=== PATIENT | female | born 1945 | race Caucasian/White ===

== ENCOUNTER → 2020-03-04 13:20 | Outpatient (CLI) | payer MEDICARE, SELFPAY ==
--- NOTE | ~2020-03-04 | MR_ITS ---
EXAMINATION: MR lumbar spine wo/w con DATE: 03/04/2020 14:24 INDICATION: Low back pain. TECHNIQUE: Magnetic resonance imaging (MRI) of the lumbar spine was performed without and with 13 mL Multihance intravenous contrast. Sequences included sagittal T2-weighted FSE, sagittal T2-weighted FS FSE, and sagittal and axial T1-weighted FSE. Postcontrast sequences included axial T2-weighted FSE, sagittal T1-weighted FSE, and axial and sagittal T1-weighted FS FSE. COMPARISON: 11/04/2017 FINDINGS: Interval L4 laminectomy with mild enhancement of the soft tissues at the operative bed.. 4 mm retroli sthesis L3 on L4. Vertebral body heights are normal. Schmorl's nodes at both sides of the L4-L5 disc space. Severe disc height loss with associated fibrofatty degenerative endplate changes at L3-L4. Mil d disc height loss at T10-T11 through L1-L2 as well as at L5-S1. Interval progression of mild to mode rate disc height loss at L2-L3 and L4-L5. T1 hyperintense hemangiomas at L1 and L4. Marrow signal is otherwise unremarkable. The conus medullaris terminates at L1. There is normal signal in the caudal s favian cord. No abnormally enhancing lesions identified. Paravertebral soft tissues are unremarkable. The following disc levels are specifically discussed: T12-L1: Disc is bulging with superimposed annular fissure with left paracentral disc extrusion with d isc material extending up to 3 mm caudal to the level of the superior endplate of L1. There is modera te bilateral facet joint osteoarthritis. There is mild left neural foraminal stenosis. There is mild central canal stenosis. L1-L2: Disc is bulging. There is mild to moderate bilateral facet joint osteoarthritis. There is mild bilateral neural foraminal stenosis. There is mild central canal stenosis. L2-L3: Disc is bulging with superimposed annular fissure and left foraminal zone and extraforaminal d isc protrusion. There is hypertrophy of the ligamentum flavum. There is severe bilateral facet joint osteoarthritis. There is mild right and mild to moderate left neural foraminal stenosis. There is mi ld central canal stenosis. L3-L4: Disc is bulging with annular fissure. There is moderate right and severe left facet joint oste oarthritis. There is moderate bilateral neural foraminal stenosis. There is decreased now mild centra l canal stenosis resulting from interval posterior decompression. L4-L5: Annular fissure with increase in size of a broad-based disc extrusion extending from foraminal zone to foraminal zone with disc material extending a few millimeters cephalad and caudal to the lev el of the endplates. There is severe bilateral facet joint osteoarthritis. There is increased moderat e left and moderate to severe right neural foraminal stenosis. There is decreased now mild central ca nal stenosis resulting from interval posterior decompression. L5-S1: Disc is bulging with superimposed annular fissure and left foraminal zone disc extrusion. Ther e is severe bilateral facet joint osteoarthritis. There is mild right and moderate left neural forami nal stenosis. There is mild central canal stenosis. IMPRESSION: 1. Interval progression of severe lumbar spondylosis but with decreased now mild central canal stenos is at L3-L4 and L4-L5 resulting from posterior decompression with L4 laminectomy. Reviewed, dictated and finalized at location A. IMPRESSION: 1. Interval progression of severe lumbar spondylosis but with decreased now mil d central canal stenosis at L3-L4 and L4-L5 resulting from posterior decompress ion with L4 laminectomy.
[2020-03-04 13:56] LABS: Estimated Glomerular Filt Rate 54
== END ==
PROVIDERS: PCP Internal Medicine; Visit Provider Internal Medicine
DX: M47.896 Other spondylosis, lumbar region (principal)
CPT/HCPCS: 72158; A9577

== ENCOUNTER 2020-06-13 18:17 | Observation (INO) | payer MEDICARE, SELFPAY ==
--- NOTE | ~2020-06-13 | CT_ITS ---
EXAMINATION: CT abd pelvis lumbar w con EXAM DATE: 06/13/2020 22:05 INDICATION: Abdominal pain. Mid back pain. TECHNIQUE: Spiral CT of the abdomen and pelvis was performed following intravenous injection of 100 m L Omnipaque 350. Axial, coronal and sagittal images were reviewed. Spiral CT lumbar spine with same bolus of contrast was performed. Axial, coronal and sagittal images were reviewed. The dose-length p roduct (DLP) for this examination was 529.25 mGy-cm. The exposure was tailored according to patient size (auto mA exposure control), and iterative reconstruction (ASIR) was used as additional dose redu ction technique. Correlation is made to MR lumbar spine 03/04/2020. FINDINGS: The liver, spleen, adrenal glands and pancreas are unremarkable. Gallbladder is unremarkab le. No biliary obstruction. Portal and splenic veins are patent. Kidneys enhance symmetrically. T here is no hydronephrosis. The uterus is not identified and has likely been surgically resected. T he bladder is unremarkable. There is no retroperitoneal or pelvic lymphadenopathy. There is mild t o moderate scattered arteriosclerotic disease. The appendix is normal. The stomach and small bowel are unremarkable. There is mild to moderate scat tered colonic diverticulosis. There is no adjacent inflammatory change to suggest diverticulitis. Th ere is expected amount of colonic stool. No free intraperitoneal gas. The heart is normal in size . There are no pericardial or pleural effusions. The lung bases are unremarkable. There are no ost eoblastic or osteolytic lesions identified. There is left hip arthroplasty. No change in the 8 mm S2 sclerotic focus probably bone. Lumbar spine demonstrates moderate to severe disc disease at L3-4 with 4 mm retrolisthesis, moderate disc disease at L4-5 with 2 mm anterolisthesis. Otherwise mild lumbar disc disease. L4 laminectomies. No endplate erosive change to suggest acute discitis. There are no acute fractures identified. Sacro iliac joints unremarkable. L3-4 has moderate to severe left, moderate right facet arthropathy. Sever e facet arthropathy of the levels below. L4-5 has moderate to severe bilateral neural foraminal steno sis. Moderate bilateral neural foraminal stenosis L3-4 and left at L5-S1. Correlate with MRI from [facility]. IMPRESSION: 1. No acute intra-abdominal findings. 2. Moderate to severe lumbar spondylosis. 3. Scattered colonic diverticulosis. 4. Intact rectosigmoid anastomosis. Reviewed, dictated and finalized at location A. ANALYST
--- NOTE | ~2020-06-13 | XR_ITS ---
XR hip RT 2V w AP pelvis 06/13/2020 20:04 Indication: Right hip and low back pain Procedure: AP pelvis and 2 views right hip Comparison: No prior studies for comparison. Findings: There is mild osteoarthritis of the right hip. There is a left total hip arthroplasty. Pelv ic rings are intact. Moderate lumbar spondylosis. There are right femoral vascular calcifications. No acute fracture or traumatic malalignment. Impression: 1: No acute bone or joint abnormality. Reviewed, dictated and finalized at location A. AL CMO Impression: 1: No acute bone or joint abnormality.
[2020-06-13 18:22] VITALS: BP 174/73; PULSE 96; RESP 16; TEMP 36.5; O2SAT 98
--- NOTE | 2020-06-13 19:30 | ED.GENADULT ---
HPI - General Adult General Chief complaint: Back Pain/Injury Stated complaint: back pain/ diarrhea Time Seen by Provider: 06/13/20 19:19 Source: RN notes reviewed History of Present Illness HPI narrative: Patient presents to emergency department from home for multiple complaints. Patient states she has a history of chronic back pain for which she is seeing a pain specialist at both [facility] in [facility] and most recently here locally patient states she last received an injection in her right lower back on 1223 and continues to have pain in her right lower back rating to her right hip she states that she is on hydrocodone at home but that pain has become increasingly more painful she denies any trauma or injury patient also states she developed diarrhea 3 days ago with several loose watery stools as well as pain in the right lower quadrant pain is described as aching in nature she denies any fevers or chills chest pain shortness of breath numbness or tingling in the extremities bowel or bladder incontinence or any other symptoms Related Data Home Medications Medication Instructions Recorded Confirmed glimepiride 2 mg PO BID 06/13/20 06/14/20 lisinopril 20 mg PO DAILY 06/13/20 06/14/20 metformin 500 mg PO DAILY 06/13/20 06/14/20 tramadol 50 mg PO Q6H PRN 06/13/20 06/14/20 cholecalciferol (vitamin D3) 25 mcg PO DAILY 06/14/20 06/14/20 [Vitamin D3] vitamin B complex [B 1 tablet PO DAILY 06/14/20 06/14/20 Complex-Vitamin B12] Allergies Allergy/AdvReac Type Severity Reaction Status Date / Time No Known Allergies Allergy Verified 06/14/20 01:04 Review of Systems Review of Systems: Narrative: Gen.: Denies fevers or chills Eyes: Denies eye pain or visual change ENT: Denies congestion Respiratory: Denies shortness of breath or cough CV: Denies chest pain or palpitations GI: D see HPI denies burning, urgency, frequency or hematuria Musculoskeletal: See HPI Neuro: Denies numbness, tingling, weakness or focal weakness Skin: Denies rash Except as documented, all other systems reviewed and negative [facility] Past Medical History Medical History (Updated 06/14/20 @ 01:51 by Cuong Gomez DO) Diabetes mellitus Essential hypertension Family History Family History (Updated 05/17/16 @ 14:32 by DOCTOR UNKNOWN) Other Diabetes mellitus Family history of arthritis Hypertension Social History Social History (Updated 06/14/20 @ 00:40 by Enrique Winters DO) Social History: Lives alone, son nearby, granted helps with groceries. She has a radio engineering teacher that helps around the house and does laundry for her. She normally drives but has not driven since March. Smoking packs per day: 1 Smoking cigarettes per day: 20.0 Years smoked: 20 Smoking pack-years: 20.00 Smoking status: Former smoker Tobacco type: cigarettes Smoking end date: 06/18/20 Alcohol intake: never Substance use: never Substance use type: does not use Living arrangements: alone Spiritual care concerns: No Exam Narrative: Exam Narrative: APPEARANCE: No acute distress, nontoxic, resting in bed EYES: EOMI HEENT: Normocephalic, atraumatic, OMM RESPIRATORY: No respiratory distress Clear to auscultation bilaterally with no rhonchi wheezing or rales. CARDIOVASCULAR: Regular rate and rhythm without murmurs rubs or gallops. ABDOMINAL: Soft, nondistended tender palpation right lower quadrant no tenderness right upper quadrant, left upper quadrant left lower quadrant no rebound or guarding Back no midline lumbar thoracic tenderness palpation old healed scar in midline lumbar spine there is a injection wound over the right lower lateral back in the presacral region with no surrounding erythema or signs of infection MUSCULOSKELETAl: Moves all extremities. No clubbing, cyanosis or edema. Tender palpation right lateral hip no swelling ecchymosis pain with flexion of the hip greater than 45 degrees NEURO: Awake and aler
[2020-06-13] MEDS: MORPHINE SULFATE (*CRX) 4 MG/ML INJ IV PUSH (20:09)
[2020-06-13] MEDS: SODIUM CHLORIDE 0.9% IV 1,000 ML 999 ML IV CONT (20:10)
[2020-06-13 20:15] VITALS: BP 151/73; PULSE 98; RESP 16; O2SAT 99
[2020-06-13 20:16] LABS: Basophils Percent Auto 0.2 % (0.2-1.2); Eosinophils Percent Auto 0.2 % (0-4.4); Hematocrit 37.1 % (37.0-47.0); Hemoglobin 12.8 g/dL (12.0-15.0); Immature Granulocyte Absolute 0.05 K/mm3 (0.00-0.031); Immature Granulocyte Percent A 0.4 % (0-0.5); Lymphocytes Absolute Auto 2.01 K/mm3 (0.9-3.2); Lymphocytes Percent Auto 16.4 % (18.3-44.2); Mean Corpuscular HGB Conc 34.5 g/dl (32-36); Mean Corpuscular Hemoglobin 32.2 pg (26-34); Mean Corpuscular Volume 93.5 fl (80-100); Mean Platelet Volume 9.2 fl (7.4-10.4); Monocytes Percent Auto 7.8 % (2.6-8.5); Neutrophils Absolute Auto 9.2 K/mm3 (1.3-6.7); Platelet Count Result 349 k/mm3 (150-375); Red Blood Count 3.97 M/mm3 (4.2-5.4); Red Cell Distribution Width 13.8 % (11.5-14.5); White Blood Count 12.2 K/mm3 (4.5-10.0)
[2020-06-13 20:22] LABS: Add Urine Microscopic? YES; Appearance Urine Clear (Clear); Bacteria Urine 2+ /hpf; Bilirubin Urine Negative (Negative); Blood Urine Negative (Negative); Color Urine Yellow (Yellow); Glucose Urine UA Negative (Negative); Ketones Urine Negative (Negative); Leukocyte Esterase Ur 3+ LEU/UL (Negative); Mucus Urine Rare /lpf; Nitrate Urine Negative (Negative); Protein Urine 1+ mg/dL (Negative); Squamous Epithelial Cell Urine Occasional /hpf (Few); Urobilinogen Urine Negative mg/dL (<2.0); WBC Urine >75 /hpf
[2020-06-13 20:23] LABS: Specific Grav Ur 1.035 (1.001-1.035)
[2020-06-13 20:27] LABS: INR 0.9; Prothrombin Time 12.8 Seconds (11.1-14.7)
[2020-06-13 20:28] LABS: Partial Thromboplastin Time 28.7 SECONDS (22.3-36.8)
[2020-06-13] MEDS: MORPHINE SULFATE (*CRX) 2 MG/ML INJ IV PUSH (20:35)
[2020-06-13 21:03] LABS: Alanine Aminotransferase 19 U/L (4-35); Albumin Level 4.2 g/dL (3.5-5.1); Alkaline Phosphatase 66 U/L (38-126); Anion Gap 11 mmol/L (8-16); Aspartate Amino Transferase 27 U/L (14-36); Bilirubin,Total 0.4 mg/dL (0.2-1.3); Blood Urea Nitrogen 24 mg/dL (7-17); Calcium 9.9 mg/dL (8.4-10.2); Carbon Dioxide 25 mmol/L (22-30); Chloride 102 mmol/L (98-107); Estimated Glomerular Filt Rate > 60; Glucose 101 mg/dL (65-105); Potassium 3.9 mmol/L (3.4-5.0); Sodium 138 mmol/L (137-145)
[2020-06-13 21:51] VITALS: BP 121/66; PULSE 94; RESP 20; O2SAT 99
[2020-06-13 22:24] VITALS: O2SAT 94
[2020-06-13] MEDS: HYDROmorphone HCL INJ (*CRX) 1 MG/ML SYR 0.5 MG IV PUSH (22:42)
[2020-06-13 22:49] VITALS: BP 144/60; PULSE 105; RESP 20; O2SAT 94
--- NOTE | 2020-06-13 23:04 | PM.IMHP ---
H&P: HPI History of Present Illness Date/Time: 06/13/20 23:04 Chief Complaint: Low back pain Narrative: Simran Finch is a 75 year old female with past medical history of hypertension, [id number] type 2 diabetes, and low back pain presents to the ED with complaints of acute worsening of low back pain. She recently was evaluated for her low back pain at pain management clinic and had 5 injections in her spine on 06/10/2020. However since her back pain problems have gotten much worse and she regrets getting those injections. She has had MRIs in the past in [place]. Was also evaluated at [facility] in [facility]. She does not recall if she has pinched nerves or spinal stenosis or if surgery was considered. She is not remember when she had her MRIs which she knows she has had MRIs, CT scans, x-rays before. She has also had a history of gastric ulcers associated with pain medications. Says not have any focal urinary complaints right now. Her main issues are back pain which she was not able to control with her home [place]. Patient denies any recent trauma, recent travels, sick contacts. Denies fever, chills, nausea, vomiting, diarrhea, fecal or stool incontinence. In the ED: UA showed signs of possible UTI, patient was given Rocephin. Physical L normal saline. For her back pain she was given Dilaudid and morphine with some improvement. X-ray hip showed no acute abnormality. Patient to be admitted to observation for intractable lower back pain. Review of Systems Review of Systems: Narrative: Constitutional: No Fever, No Chills, No Night Sweats, No Fatigue, No Malaise ENT/Mouth: No Hearing Changes, No Ear Pain, No Nasal Congestion, No Sinus Pain, No Hoarseness, No sore throat, No Rhinorrhea, No Swallowing Difficulty Eyes: No Eye Pain, No Redness, No Vision Changes Cardiovascular: No Chest Pain, No Palpitations, No Dyspnea on Exertion, No Orthopnea, No Claudication, No Edema Respiratory: No Cough, No Sputum, No Wheezing, No Shortness of Breath Gastrointestinal: No Nausea, No Vomiting,No Constipation, No Abdominal Pain, No Heartburn, No Hematochezia, No Melena. Endorses watery diarrhea Genitourinary: No Dysuria, No Urinary Frequency, No Hematuria, No Urinary Incontinence, No Urgency Musculoskeletal: No Arthralgias, No Myalgias, No Joint Swelling, No Joint Stiffness, endorses acute on chronic low back pain with neuropathy Skin: No Skin Lesions, No Pruritis, No Hair Changes Neuro: No Loss of Consciousness, No Syncope, No Dizziness, No Headache. Endorses some sciatic code right lower extremity pain from her lower back going to her right hip. Psych: No Anxiety/Panic, No Depression, No Insomnia Heme: No Bruising, No Bleeding Lymph: No Adenopathy Endocrine: No Polyuria, No Polydipsia, No Temperature Intolerance [facility] Past Medical History Medical History (Updated 06/14/20 @ 03:57 by Enrique Winters DO) Chronic low back pain Diabetes mellitus Essential hypertension Gastric ulcer Surgical History Surgical History (Updated 06/14/20 @ 03:57 by Enrique Winters DO) History of back surgery History of bladder suspension procedure History of gastric stapling Family History Family History (Updated 06/14/20 @ 01:53 by Bette Rios RN) Mother Diabetes mellitus Cancer Father Hypertension Alzheimer disease Other Family history of arthritis Social History Social History (Updated 06/14/20 @ 00:40 by Enrique Winters DO) Social History: Lives alone, son nearby, granted helps with groceries. She has a tube washer that helps around the house and does laundry for her. She normally drives but has not driven since March. Smoking packs per day: 1 Smoking cigarettes per day: 20.0 Years smoked: 20 Smoking pack-years: 20.00 Smoking status: Former smoker Tobacco type: cigarettes Smoking end date: 06/18/20 Alcohol intake: never Substance use: never Substa
[2020-06-14 01:03] VITALS: BMI 25.0
[2020-06-14 01:10] VITALS: BP 157/62; PULSE 95; RESP 16; TEMP 36.6; O2SAT 99
--- NOTE | 2020-06-14 02:15 | PC.NURSE ---
0050 PT RECEIVED PER STRETCHER, UP TO BEDSIDE COMMODE WITH 2 ASSIST, ORIENTED TO ROOM AND ROUTINE
[2020-06-14] MEDS: MORPHINE SULFATE (*CRX) 4 MG/ML INJ 2 MG IV PUSH (05:49)
[2020-06-14 06:00] VITALS: BP 126/55; PULSE 97; RESP 18; TEMP 36.6; O2SAT 95
[2020-06-14 07:19] LABS: Basophils Percent Auto 0.5 % (0.2-1.2); Eosinophils Absolute Auto 0.1 K/mm3 (0-0.3); Eosinophils Percent Auto 0.7 % (0-4.4); Hematocrit 32.9 % (37.0-47.0); Hemoglobin 11.3 g/dL (12.0-15.0); Immature Granulocyte Absolute 0.04 K/mm3 (0.00-0.031); Immature Granulocyte Percent A 0.5 % (0-0.5); Lymphocytes Absolute Auto 1.82 K/mm3 (0.9-3.2); Lymphocytes Percent Auto 20.5 % (18.3-44.2); Mean Corpuscular HGB Conc 34.3 g/dl (32-36); Mean Corpuscular Volume 93.2 fl (80-100); Monocytes Absolute Auto 0.8 K/mm3 (0.1-0.6); Monocytes Percent Auto 8.7 % (2.6-8.5); Neutrophils Absolute Auto 6.2 K/mm3 (1.3-6.7); Neutrophils Percent Auto 69.1 % (45.5-73.1); Platelet Count Result 304 k/mm3 (150-375); Red Blood Count 3.53 M/mm3 (4.2-5.4); Red Cell Distribution Width 13.8 % (11.5-14.5); White Blood Count 8.9 K/mm3 (4.5-10.0)
[2020-06-14 07:23] LABS: Hemoglobin A1C 6.5 % (<5.7)
[2020-06-14 07:26] LABS: Anion Gap 8 mmol/L (8-16); Blood Urea Nitrogen 16 mg/dL (7-17); Calcium 9.1 mg/dL (8.4-10.2); Carbon Dioxide 26 mmol/L (22-30); Chloride 105 mmol/L (98-107); Estimated Glomerular Filt Rate > 60; Glucose 86 mg/dL (65-105); Potassium 3.9 mmol/L (3.4-5.0); Sodium 139 mmol/L (137-145)
[2020-06-14 08:00] VITALS: PULSE 97; RESP 18; O2SAT 95
[2020-06-14] MEDS: HYDROcodone/acetaminophen (*CRX) 7.5-325 MG TABLET 1 TAB PO ×3 (08:10→21:40)
[2020-06-14 09:28] LABS: Glucose Point of Care 69 (65-105)
--- NOTE | 2020-06-14 09:30 | PM.IMPN ---
Progress Note: A&P Assessment and Plan (1) Intractable low back pain: Code(s): M54.5 - Low back pain Status: Acute Assessment and Plan: -intractable low back pain likely acute exacerbation of chronic low back disease. She does not have fecal or stool incontinence, no sign of paraplegia or any alarm features. -requesting records from previous MRIs in [place] -requesting records from pain management clinic as well, patient had injections on 06/10/2020 -physical therapy to evaluate and treat patient -continue home [place], holding tramadol, giving morphine for breakthrough pain, will adjust pain medications as needed -Zofran for nausea -patient will likely need to follow-up with pain management clinic in case she needs back surgery as well as thorough review of MRIs (2) UTI (urinary tract infection): Code(s): N39.0 - Urinary tract infection, site not specified Status: Acute Assessment and Plan: -UA shows some signs of infection with WBC increased -patient was given Rocephin in ED, awaiting CT abdomen read Additional Plan # other chronic conditions -continue supplement vitamin B12, vitamin-D -type 2 diabetes non-insulin dependent: Holding metformin/glimepiride in case she needs further imaging, low-dose sliding scale insulin, Accu-Chek a.c. HS, hypoglycemia protocol, checking hemoglobin A1c -hypertension: Continue lisinopril Diet: Diabetic carb controlled DVT prophylaxis: Lovenox Code status: Full code Disposition: Pending physical therapy eval for possible placement Will continue with IV antibiotic and pain management. Will check the result of CT abdomen pelvis. X-rays are negative. Will start physical therapy. Subjective Date/time seen: 06/14/20 09:30 Interval history: Patient was seen during the morning rounds today. Patient still have low back pain. Patient denies any shortness of breath or chest pain. No fever or chills. No nausea vomiting. Mood stable. Review of Systems Review of Systems: All systems reviewed & are unremarkable except as noted in HPI and below (the history and physical exam) Exam Narrative: Exam Narrative: - GENERAL: Pleasant older woman no acute distress - EYES: EOMI. Anicteric. - HENT: Moist mucous membranes. - LUNGS: Clear to auscultation bilaterally, no wheezing, rhonchi, or rales. - CARDIOVASCULAR: Regular rate and rhythm. No murmur. No JVD. - ABDOMEN: Soft, non-tender and non-distended. No palpable masses. - EXTREMITIES: No edema. Peripheral pulses 2+. Right lower extremity tender on manipulation in any direction. Right hip appears to protrude laterally which she states is chronic. - MSK: Lower back right-sided lumbar region there is a bandage and there is no sign of infection or abscess at injection site - NEUROLOGIC: No focal neurological deficits. CN II-XII grossly intact. - PSYCHIATRIC: Awake, Alert and oriented x 3. Appropriate mood and affect. - SKIN: No rashes or lesions. Warm. - LYMPH: No cervical lymphadenopathy. Objective Data Vital Signs Vital Signs: Vital Signs - 24 hr 06/13/20 18:22 06/13/20 20:15 06/13/20 21:51 Temperature 36.5 C Pulse Rate 96 98 94 Respiratory Rate 16 16 20 Blood Pressure 174/73 H 151/73 H 121/66 Pulse Oximetry 98 99 99 06/13/20 22:24 06/13/20 22:49 06/14/20 01:10 Temperature 36.6 C Pulse Rate 105 H 95 Respiratory Rate 20 16 Blood Pressure 144/60 H 157/62 H Pulse Oximetry 94 94 99 06/14/20 06:00 Temperature 36.6 C Pulse Rate 97 Respiratory Rate 18 Blood Pressure 126/55 L Pulse Oximetry 95 Intake/Output Intake/Output: Intake & Output 06/11/20 06/12/20 06/13/20 06/14/20 23:59 23:59 23:59 23:59 Intake Total 150 50 Output Total 300 Balance 150 -250 Meds/Results Medications: Active Medications Generic Name Dose Route Start Last Admin Trade Name Freq PRN Reason Stop Dose Admin Hydrocodone Bitart/Acetaminophen 1 tab 06/14/20 03:40 06/14/20 08:10 Hydrocodone/Aceta
[2020-06-14 13:27] LABS: Glucose Point of Care 129 (65-105)
[2020-06-14] MEDS: CHOLECALCIFEROL 1,000 UNITS TABLET 1000 UNITS PO (13:38)
[2020-06-14] MEDS: lisinopriL 20 MG TABLET PO (13:38)
[2020-06-14] MEDS: ENOXAPARIN 40 MG/0.4 ML SYRINGE SUB-Q (13:38)
[2020-06-14] MEDS: VITAMIN B COMPLEX CAPSULE 1 CAP PO (13:38)
[2020-06-14 14:00] VITALS: BP 135/55; PULSE 91; RESP 18; TEMP 36.4; O2SAT 99
[2020-06-14 17:59] LABS: Glucose Point of Care 112 (65-105)
[2020-06-14 19:01] LABS: Glucose Point of Care 41 (65-105)
[2020-06-14 21:38] LABS: Glucose Point of Care 192 (65-105)
[2020-06-14 22:00] VITALS: BP 137/58; PULSE 97; RESP 16; TEMP 36.6; O2SAT 96
[2020-06-15] MEDS: MORPHINE SULFATE (*CRX) 4 MG/ML INJ 2 MG IV PUSH ×3 (01:31→22:57)
[2020-06-15 06:00] VITALS: BP 142/66; PULSE 89; RESP 16; TEMP 37.2; O2SAT 100
[2020-06-15] MEDS: HYDROcodone/acetaminophen (*CRX) 7.5-325 MG TABLET 1 TAB PO ×3 (06:13→21:40)
[2020-06-15 08:22] LABS: Glucose Point of Care 126 (65-105)
[2020-06-15] MEDS: lisinopriL 20 MG TABLET PO (08:25)
[2020-06-15] MEDS: CHOLECALCIFEROL 1,000 UNITS TABLET 1000 UNITS PO (08:25)
[2020-06-15] MEDS: ENOXAPARIN 40 MG/0.4 ML SYRINGE SUB-Q (08:25)
[2020-06-15] MEDS: VITAMIN B COMPLEX CAPSULE 1 CAP PO (08:25)
--- NOTE | 2020-06-15 09:50 | PM.IMPN ---
Progress Note: A&P Assessment and Plan (1) Intractable low back pain: Code(s): M54.5 - Low back pain Status: Acute Assessment and Plan: -intractable low back pain likely acute exacerbation of chronic low back disease. She does not have fecal or stool incontinence, no sign of paraplegia or any alarm features. -requesting records from previous MRIs in [place] -requesting records from pain management clinic as well, patient had injections on 06/10/2020 -physical therapy to evaluate and treat patient -continue home [place], holding tramadol, giving morphine for breakthrough pain, will adjust pain medications as needed -Zofran for nausea -patient will likely need to follow-up with pain management clinic in case she needs back surgery as well as thorough review of MRIs (2) UTI (urinary tract infection): Code(s): N39.0 - Urinary tract infection, site not specified Status: Acute Assessment and Plan: -UA shows some signs of infection with WBC increased -patient was given Rocephin in ED, awaiting CT abdomen read Additional Plan # other chronic conditions -continue supplement vitamin B12, vitamin-D -type 2 diabetes non-insulin dependent: Holding metformin/glimepiride in case she needs further imaging, low-dose sliding scale insulin, Accu-Chek a.c. HS, hypoglycemia protocol, checking hemoglobin A1c -hypertension: Continue lisinopril Diet: Diabetic carb controlled DVT prophylaxis: Lovenox Code status: Full code Disposition: Pending physical therapy eval for possible placement Will continue with IV antibiotic and pain management. Will check the result of CT abdomen pelvis. X-rays are negative. Will start physical therapy. UA shows Klebsiella pneumoniae susceptibilities pending. Will adjust antibiotics accordingly. At present will continue physical therapy and IV antibiotics. Subjective Date/time seen: 06/15/20 09:50 Interval history: Patient was seen during the morning rounds today. Patient still have low back pain. Patient denies any shortness of breath or chest pain. No fever or chills. No nausea vomiting. Mood stable. No new complaints Review of Systems Review of Systems: All systems reviewed & are unremarkable except as noted in HPI and below (the history and physical exam) Exam Narrative: Exam Narrative: - GENERAL: Pleasant older woman no acute distress - EYES: EOMI. Anicteric. - HENT: Moist mucous membranes. - LUNGS: Clear to auscultation bilaterally, no wheezing, rhonchi, or rales. - CARDIOVASCULAR: Regular rate and rhythm. No murmur. No JVD. - ABDOMEN: Soft, non-tender and non-distended. No palpable masses. - EXTREMITIES: No edema. Peripheral pulses 2+. Right lower extremity tender on manipulation in any direction. Right hip appears to protrude laterally which she states is chronic. - MSK: Lower back right-sided lumbar region there is a bandage and there is no sign of infection or abscess at injection site - NEUROLOGIC: No focal neurological deficits. CN II-XII grossly intact. - PSYCHIATRIC: Awake, Alert and oriented x 3. Appropriate mood and affect. - SKIN: No rashes or lesions. Warm. - LYMPH: No cervical lymphadenopathy. Objective Data Vital Signs Vital Signs: Vital Signs - 24 hr 06/14/20 14:00 06/14/20 22:00 06/15/20 06:00 Temperature 36.4 C 36.6 C 37.2 C Pulse Rate 91 97 89 Respiratory Rate 18 16 16 Blood Pressure 135/55 L 137/58 L 142/66 H Pulse Oximetry 99 96 100 Intake/Output Intake/Output: Intake & Output 06/12/20 06/13/20 06/14/20 06/15/20 23:59 23:59 23:59 23:59 Intake Total 150 1870 300 Output Total 1350 Balance 150 520 300 Meds/Results Medications: Active Medications Generic Name Dose Route Start Last Admin Trade Name Freq PRN Reason Stop Dose Admin Hydrocodone Bitart/Acetaminophen 1 tab 06/14/20 03:40 06/15/20 06:13 Hydrocodone/Acetaminophen (*Crx) 7.5-325 Mg Tablet PO 1 tab Q6H PRN Administration Pain (Scale Score 7-10)
[2020-06-15 12:13] LABS: Glucose Point of Care 178 (65-105)
[2020-06-15 14:00] VITALS: BP 134/61; PULSE 77; RESP 16; TEMP 36.7; O2SAT 98
[2020-06-15 17:41] LABS: Glucose Point of Care 127 (65-105)
[2020-06-16 05:33] VITALS: BP 113/61; PULSE 94; RESP 18; TEMP 36.2; O2SAT 96
[2020-06-16] MEDS: ENOXAPARIN 40 MG/0.4 ML SYRINGE SUB-Q (08:48)
[2020-06-16] MEDS: VITAMIN B COMPLEX CAPSULE 1 CAP PO (08:49)
[2020-06-16] MEDS: lisinopriL 20 MG TABLET PO (08:49)
[2020-06-16] MEDS: CHOLECALCIFEROL 1,000 UNITS TABLET 1000 UNITS PO (08:49)
[2020-06-16 09:10] LABS: Glucose Point of Care 123 (65-105)
[2020-06-16 11:49] LABS: Mean Platelet Volume 9.1 fl (7.4-10.4); Platelet Count Result 299 k/mm3 (150-375)
[2020-06-16 14:00] VITALS: BP 135/60; PULSE 103; RESP 20; TEMP 36.3; O2SAT 99
--- NOTE | 2020-06-16 14:01 | PCOTNOTE ---
Attempted therapy session with patient, but patient refused, stating she was in too much pain; patient was supine and moaning in pain, stating she couldn't do anything right now. Patient's nurse notified.
--- NOTE | 2020-06-16 14:04 | PM.DS ---
DS: Admitting Diagnosis Admitting Diagnosis Admitting Diagnosis: Low back pain DS: Discharge Diagnosis Discharge Diagnosis (1) Intractable low back pain: Code(s): M54.5 - Low back pain Status: Acute Assessment and Plan: -intractable low back pain likely acute exacerbation of chronic low back disease. no red flags -requesting records from previous MRIs in [place] -pt has been to pain management clinic as well, patient had injections on 06/10/2020 -physical therapy to continue to treat patient -continue home Neptune, holding tramadol, giving morphine for breakthrough pain -patient will likely need to follow-up with pain management clinic in case she needs back surgery as well as thorough review of MRIs (2) UTI (urinary tract infection): Code(s): N39.0 - Urinary tract infection, site not specified Status: Acute Assessment and Plan: -UA shows some signs of infection -patient was given Rocephin.Wcc normal, urine shows klebsiella pt is ok for discharge on oral abx. DS: Summary Hospital Course Hospital Course: Patient still having low back pain. MRIS reviewed pt is stable for discharge to SNF with pain medication and follow up with her pain specialist. Time Spent with Patient Time attestation: Total time spent providing and/or coordinating discharge services:40 minutes on day of dischrage Exam Narrative: Exam Narrative: - GENERAL: Pleasant older woman no acute distress - LUNGS: Clear to auscultation bilaterally, no wheezing, rhonchi, or rales. - CARDIOVASCULAR: Regular rate and rhythm. No murmur. No JVD. - ABDOMEN: Soft, non-tender and non-distended. No palpable masses. - EXTREMITIES: No edema. Peripheral pulses 2+. - MS Lower back right-sided lumbar region worse on flexion of hip and knee - NEUROLOGIC: No focal neurological deficits. CN II-XII grossly intact. - PSYCHIATRIC: Awake, Alert and oriented x 3. Appropriate mood and affect. DS: Data Data Completed and Pending Labs on day of discharge: Labs from last 24 hours 06/16/20 06/16/20 06/16/20 11:42 08:47 03:55 Plt Count 299 MPV 9.1 POC Capillary Glucose 123 H SARS-CoV-2 RNA (RT-PCR) Pending 06/15/20 17:36 Plt Count MPV POC Capillary Glucose 127 H SARS-CoV-2 RNA (RT-PCR) Discharge Plan Discharge Attending physician on discharge: Jennifer Turner Consulting providers: Clarence Arshad ; Ephraim Nye ; Jennifer Turner ; Max Schmitz Discharging Clinician: Jennifer Truner Anticipated Discharge Date/Time: 06/16/20 20:00 Patient Disposition: Inpatient Rehab Facility Activity: as tolerated Diet: diabetic Patient Instructions: Chronic Back Pain (GEN) Stand Alone Forms: General Discharge Information Follow-up/Referrals: Cris,Ahmet Valentin MD [Primary Care Provider] - Discharge Medications: New ciprofloxacin HCl 500 mg tablet 500 mg PO Q12H Qty: 14 RF: 0 hydrocodone-acetaminophen 7.5-325 mg Tablet 1 tablet PO Q6H PRN (Reason: Pain (Scale Score 7-10)) Qty: 30 RF: 0 tramadol 50 mg tablet 50 mg PO Q8H PRN (Reason: pain) Qty: 30 RF: 0 tramadol 50 mg tablet 50 mg PO Q8H PRN (Reason: pain) Qty: 30 RF: 0 Continued lisinopril 20 mg Tablet 20 mg PO DAILY RF: 0 glimepiride 2 mg Tablet 2 mg PO BID RF: 0 metformin 500 mg Tablet Extended Release 24 Hr 500 mg PO DAILY RF: 0 vitamin B complex [B Complex-Vitamin B12] Tablet 1 tablet PO DAILY RF: 0 cholecalciferol (vitamin D3) [Vitamin D3] 25 mcg (1,000 unit) Capsule 25 mcg PO DAILY RF: 0 loperamide 2 mg Capsule 2 mg PO QID PRN (Reason: Diarrhea) RF: 0 acetaminophen-codeine 300-30 mg tablet 1 - 2 tablet PO Q6H Qty: 30 RF: 0 tramadol 50 mg Tablet 50 mg PO Q6H PRN (Reason: Pain) Qty: 30 RF: 0 hydrocodone-acetaminophen [Neptune] 7.5-325 mg Tablet 1 tablet PO TID PRN (Reason: Pain (Scale Score 7-10)) Qty: 30 RF: 0 Date of admission: 06/13/20 23:11
[2020-06-16] MEDS: HYDROcodone/acetaminophen (*CRX) 7.5-325 MG TABLET 1 TAB PO (14:06)
[2020-06-16 15:11] LABS: Glucose Point of Care 180 (65-105)
[2020-06-16 18:44] LABS: SARS-CoV-2 RNA PCR Negative
== END 2020-06-16 15:30 ==
LOC: ANHED 23:15 → ANH3MEDSUR 06-14 00:07
PROVIDERS: Internal Medicine; Admitting Provider Student in an Organized Health Care Education/Training Program; Emergency Provider Emergency Medicine; PCP Internal Medicine; Visit Provider Family Medicine
DX: M54.5 Low back pain (principal); Z20.828 Contact with and (suspected) exposure to other viral communicable diseases; N39.0 Urinary tract infection, site not specified; B96.1 Klebsiella pneumoniae [K. pneumoniae] as the cause of diseases classified elsewhere; G89.29 Other chronic pain; I10 Essential (primary) hypertension; E11.9 Type 2 diabetes mellitus without complications; Z87.891 Personal history of nicotine dependence; Z79.84 Long term (current) use of oral hypoglycemic drugs; M47.816 Spondylosis without myelopathy or radiculopathy, lumbar region; K57.90 Diverticulosis of intestine, part unspecified, without perforation or abscess without bleeding; Z79.899 Other long term (current) drug therapy
CPT/HCPCS: 36415; 72132; 73502; 74177; 80048; 80053; 81001; 83036; 85025; 85049; 85610; 85730; 87077; 87086; 87088; 87186; 87635; 96365; 96367; 96372; 96375; 96376; 97110; 97116; 97161; 97165; 97530; 97535; 99285; A9270; C9803; G0378; J0131; J0696; J1170; J1650; J2270; J7030; Q9967; U0003